=== PATIENT | female | born 1985 | race Caucasian/White ===

== ENCOUNTER 2020-02-04 06:37 | Outpatient (CLI) | payer OTHER, SELFPAY ==
--- NOTE | ~2020-02-04 | XR_ITS ---
XR foot LT min 3V DATE: 02/04/2020 07:29 INDICATION: Left foot pain TECHNIQUE: 4 views COMPARISON: None FINDINGS: Posterior calcaneal enthesopathy. No fracture or dislocation, periosteal reaction or bone destruction. IMPRESSION: Posterior calcaneal enthesopathy Reviewed, dictated and finalized at location A.
--- NOTE | ~2020-02-04 | XR_ITS ---
XR foot RT min 3V DATE: 02/04/2020 07:29 INDICATION: Right foot pain TECHNIQUE: 4 views COMPARISON: None FINDINGS: Mild plantar and more prominent posterior calcaneal enthesopathy. No fracture or dislocation, periosteal reaction or bone destruction. IMPRESSION: Plantar and posterior calcaneal enthesopathy Reviewed, dictated and finalized at location A.
--- NOTE | ~2020-02-04 | XR_ITS ---
EXAMINATION: HAND-MACI ARTHRITIS 3+VIEWS DATE: 02/04/2020 07:29 INDICATION: Joint pain at the bilateral hands. TECHNIQUE: Posteroanterior, lateral, and oblique views of the left and of the right hands as well as a ballcatchers view of both hands were obtained. COMPARISON: None. FINDINGS: Alignment is normal. No fracture. Joint spaces are normal. No erosions or osteophytosis. Soft tissues are unremarkable. IMPRESSION: 1. Normal bilateral hand radiographs. Reviewed, dictated and finalized at location A.
[2020-02-04 07:22] LABS: Basophils Absolute Auto 0.1 K/mm3 (0.0-0.1); Basophils Percent Auto 0.6 % (0.2-1.2); Hematocrit 40.4 % (37.0-47.0); Hemoglobin 13.8 g/dL (12.0-15.0); Immature Granulocyte Absolute 0.01 K/mm3 (0.00-0.031); Immature Granulocyte Percent A 0.1 % (0-0.5); Lymphocytes Absolute Auto 3.86 K/mm3 (0.9-3.2); Lymphocytes Percent Auto 43.8 % (18.3-44.2); Mean Corpuscular HGB Conc 34.2 g/dl (32-36); Mean Corpuscular Hemoglobin 30.7 pg (26-34); Mean Platelet Volume 9.3 fl (7.4-10.4); Monocytes Absolute Auto 0.7 K/mm3 (0.1-0.6); Monocytes Percent Auto 8.4 % (2.6-8.5); Neutrophils Absolute Auto 4.2 K/mm3 (1.3-6.7); Neutrophils Percent Auto 47.1 % (45.5-73.1); Platelet Count Result 292 k/mm3 (150-375); Red Blood Count 4.49 M/mm3 (4.2-5.4); Red Cell Distribution Width 12.8 % (11.5-14.5); White Blood Count 8.8 K/mm3 (4.5-10.0)
[2020-02-04 07:38] LABS: Alanine Aminotransferase 19 U/L (4-35); Albumin Level 4.5 g/dL (3.5-5.1); Alkaline Phosphatase 61 U/L (38-126); Aspartate Amino Transferase 22 U/L (14-36); Bilirubin,Total 0.2 mg/dL (0.2-1.3); Blood Urea Nitrogen 15 mg/dL (7-17); Calcium 9.2 mg/dL (8.4-10.2); Carbon Dioxide 27 mmol/L (22-30); Chloride 105 mmol/L (98-107); Estimated Glomerular Filt Rate > 60; Glucose 91 mg/dL (65-105); Sodium 139 mmol/L (137-145); Uric Acid 4.9 mg/dL (2.5-7.5)
[2020-02-04 07:53] LABS: Erythrocyte Sedimentation Rate 17 mm/hr (0-20)
[2020-02-04 08:06] LABS: Rheumatoid Factor < 8.6 IU/ML (<12)
[2020-02-08 09:44] LABS: ANA Cascade Screen Negative (Negative)
== END 2020-02-04 06:38 | disposition home or self-care (01) ==
PROVIDERS: PCP Family Medicine; Visit Provider Family Medicine
DX: M25.50 Pain in unspecified joint (principal); M77.32 Calcaneal spur, left foot; M77.31 Calcaneal spur, right foot
CPT/HCPCS: 36415; 73130; 73630; 80053; 84443; 84550; 85025; 85652; 86038; 86430

== ENCOUNTER 2020-11-23 16:14 | Emergency (ER) | payer OTHER, SELFPAY ==
[2020-11-23 16:27] VITALS: BP 128/96; PULSE 77; RESP 16; TEMP 36.8; O2SAT 98
[2020-11-23 16:37] VITALS: BP 128/76; PULSE 72; RESP 17; TEMP 36.8; O2SAT 100
--- NOTE | 2020-11-23 16:53 | PC.NURSE ---
LEOBARDO mccracken at bedside.
[2020-11-23] MEDS: DEXAMETHASONE SOD PHOS INJ 4 MG/ML VIAL 10 MG IV PUSH (17:13)
[2020-11-23] MEDS: diphenhydrAMINE HCl INJ 50 MG/ML VIAL 25 MG IV PUSH (17:14)
[2020-11-23] MEDS: SODIUM CHLORIDE 0.9% IV 1,000 ML 999 ML IV CONT (17:14)
[2020-11-23] MEDS: KETOROLAC 15 MG/ML VIAL (*BKC) IV PUSH (17:14)
--- NOTE | 2020-11-23 17:57 | ED.GENADULT ---
HPI - General Adult General Chief complaint: Headache Stated complaint: migrane Time Seen by Provider: 11/23/20 16:31 Source: patient Mode of arrival: ambulatory Limitations: no limitations History of Present Illness HPI narrative: Patient with history of Chiari malformation and migraines presents with chief complaint of a migraine that has been present for 6 days. Patient reports she has had some photophobia and nausea. Patient states she has been taking the Excedrin without resolution of her symptoms. She denies syncope, visual or auditory changes. Patient reports that she had surgery for her Chiari malformation in 2019 however she has been seeing her neurologist recently for additional work-up as some of her symptoms have increased in frequency. She states she called her Neurologist and she was told to present to the ER for migraine aborting medications and to follow up in their office. Related Data Home Medications Medication Instructions Recorded Confirmed alprazolam 0.5 mg tablet 0.5 mg PO DAILY PRN 01/28/20 01/28/20 escitalopram oxalate 20 mg tablet 20 mg PO DAILY 01/28/20 01/28/20 Allergies Allergy/AdvReac Type Severity Reaction Status Date / Time Sulfa (Sulfonamide Allergy Mild HIVES Verified 10/20/16 12:35 Antibiotics) tizanidine Allergy Swelling Verified 11/23/20 17:31 of Lip/Tongue/Throat Wheat Allergy Intermediate Unknown Uncoded 11/23/20 17:31 Review of Systems Review of Systems: Narrative: CONSTITUTIONAL: Denies fever, chills, or sweats. EYES: Denies visual changes, redness, or discharge. ENT: Denies rhinorrhea, congestion, sore throat, or otalgia. CARDIOVASCULAR: Denies chest pain, palpitations, or edema. RESPIRATORY: Denies cough or dyspnea. GASTROINTESTINAL: Reports nausea denies abdominal pain, vomiting, or diarrhea. GENITOURINARY: Denies dysuria or hematuria. SKIN: Denies rash or itching. MUSCULOSKELETAL: Denies back pain, myalgia, or joint pain NEUROLOGIC: Reports headache denies numbness, dizziness, or weakness. PSYCHIATRIC: Denies anxiety or depression. [facility] Family History Family History (Updated 12/24/18 @ 12:05 by DOCTOR UNKNOWN) Grandparent Diabetes mellitus Family history of cardiovascular disease Family history of seizure disorder Father Family history of alcoholism Other Cerebrovascular accident Family history of gallbladder disease Hypertension Social History Social History Smoking status: Never smoker Alcohol intake: never Gender identity (if verbalized by the patient): Female Exam Narrative: Exam Narrative: GENERAL: Well-appearing, well-nourished. HEAD: Normocephalic, atraumatic. EYES: PERRLA and EOMI. ENT: Nares clear, no rhinorrhea or epistaxis. Mucous membranes moist. Oropharynx without tonsillar hypertrophy exudate or other lesions. Bilateral TMs pearly bonilla nonbulging NECK: Supple. No adenopathy or masses. No vertebral tenderness or loss of ROM. CHEST: Clear to auscultation. No respiratory distress. No wheezes rales or rhonchi HEART: Regular rate and rhythm. Normal peripheral pulses. EXTREMITIES: No acute changes in ROM. No edema. SKIN: Warm, dry, no rash. NEURO: No focal deficits. Alert and oriented x3. Speech appropriate. PSYCH: Normal mood and affect. Course Vital Signs Vital signs: Vital Signs Temperature 98.3 F 11/23/20 16:27 Pulse Rate 77 11/23/20 16:27 Respiratory Rate 16 11/23/20 16:27 Blood Pressure 128/96 H 11/23/20 16:27 Pulse Oximetry 98 11/23/20 16:27 Temperature 98.3 F 11/23/20 16:37 Pulse Rate 78 11/23/20 18:23 Respiratory Rate 16 11/23/20 18:23 Blood Pressure 123/75 11/23/20 18:23 Pulse Oximetry 100 11/23/20 18:23 Medical Decision Making MDM Narrative Medical decision making narrative: Patient states that she feels her headache is greatly improved and she feels ready to go home. Patient has been given a note to be off work so that she can follow-up with porter
[2020-11-23 18:23] VITALS: BP 123/75; PULSE 78; RESP 16; O2SAT 100
== END 2020-11-23 18:24 | disposition home or self-care (01) ==
PROVIDERS: Emergency Provider Emergency Medicine; PCP Family Medicine
DX: G43.001 Migraine without aura, not intractable, with status migrainosus (principal)
CPT/HCPCS: 96361; 96374; 96375; 99284; J1100; J1200; J1885; J7030

== ENCOUNTER 2022-01-14 17:04 | Emergency (ER) | payer OTHER, SELFPAY ==
--- NOTE | ~2022-01-14 | XR_ITS ---
EXAM: XR shoulder RT min 2V HISTORY: shoulder injury,TODAY,PAIN WITH MOVEMENT ENTIRE RT SHOULDER COMPARISON: None available FINDINGS: Normal mineralization. No fracture or dislocation. No lytic or blastic lesion. Degenerativ e changes at the AC joint and acromion. No erosion or periosteal change. Soft tissues within normal l imits. IMPRESSION: No acute osseous finding in the right shoulder. Reviewed, dictated and finalized at location K.
[2022-01-14 17:08] VITALS: BP 138/94; PULSE 90; RESP 16; TEMP 36.3; O2SAT 98
--- NOTE | 2022-01-14 18:39 | ED.UPPEXIN ---
HPI - Extremity Injury (Upper) General Chief Complaint: Extremity Injury, Upper Stated Complaint: right shoulder injury Time Seen by Provider: 01/14/22 17:57 Source: patient Mode of arrival: ambulatory Limitations: no limitations History of Present Illness HPI narrative: This is a 36-year-old female that presents to the emergency department for right shoulder pain after an injury today. Reports she was helping to carry a heavy table. She felt a tearing sensation in the right shoulder. Since she has had pain and decreased range of motion. She has not taken anything for pain. Denies numbness. Related Data Home Medications Medication Instructions Recorded Confirmed alprazolam 0.5 mg tablet 0.5 mg PO DAILY PRN 01/28/20 09/15/21 Allergies Allergy/AdvReac Type Severity Reaction Status Date / Time rizatriptan [From Maxalt] Allergy Severe throat Verified 01/14/22 17:55 swelling, tongue swelling Sulfa (Sulfonamide Allergy Mild HIVES Verified 01/14/22 17:55 Antibiotics) tizanidine Allergy Swelling Verified 01/14/22 17:55 of Lip/Tongue/Throat Wheat Allergy Intermediate Unknown Uncoded 09/13/21 08:52 Review of Systems Review of Systems: CONSTITUTIONAL: Denies fever MUSCULOSKELETAL: Reports joint pain, and myalgia. NEUROLOGIC: Denies numbness All systems reviewed & are unremarkable except as noted in HPI and below PMFSH Past Medical History Medical History Allergies Anxiety Gall bladder disease Surgical History Surgical History Chiari I malformation decompression surgery ( laminectomy, decompression) History of carpal tunnel surgery History of cholecystectomy Hx of tonsillectomy Family History Family History Grandparent Diabetes mellitus Family history of cardiovascular disease Family history of seizure disorder Father Family history of alcoholism Other Cerebrovascular accident Family history of gallbladder disease Hypertension Social History Social History Smoking status: Never smoker Alcohol intake: current Substance use: unknown Gender identity (if verbalized by the patient): Female Exam Narrative: GENERAL: Well-appearing, well-nourished, and in no acute distress. HEAD: Normocephalic, atraumatic. EYES: EOMI. EXTREMITIES: No edema or obvious deformity. Decreased active ROM in the right shoulder due to pain. Normal radial pulses. Normal sensation SKIN: Warm, dry, no rash. NEURO: No focal deficits. Alert and oriented x3. PSYCH: Normal mood and affect Course Vital Signs Vital signs: Vital Signs Temperature 97.4 F L 01/14/22 17:08 Pulse Rate 90 01/14/22 17:08 Respiratory Rate 16 01/14/22 17:08 Blood Pressure 138/94 H 01/14/22 17:08 Pulse Oximetry 98 01/14/22 17:08 Temperature 97.4 F L 01/14/22 17:08 Pulse Rate 90 01/14/22 17:08 Respiratory Rate 16 01/14/22 17:08 Blood Pressure 138/94 H 01/14/22 17:08 Pulse Oximetry 98 01/14/22 17:08 MDM - Extremity Injury (Upper) MDM Narrative Medical decision making narrative: Patient presents to the ER for right shoulder pain after an injury today. Right shoulder x-ray without acute osseous abnormalities. Patient is neurovascularly intact. Patient placed in a sling. Instructed to rest, ice and take [id number] pain medication as needed. She is to follow-up with her primary care doctor. She was given warnings to return to the ER Imaging Data Radiologist's impression: ITS Impressions Shoulder X-Ray 01/14/22 17:26 IMPRESSION: No acute osseous finding in the right shoulder. Critical Care Time Critical Care Time Critical Care Time: No Discharge Plan Discharge Clinical Impression: Acute pain of right shoulder Patie
[2022-01-14] MEDS: KETOROLAC (*BKC) 60 MG/2 ML VIAL IM (18:49)
== END 2022-01-14 19:01 | disposition home or self-care (01) ==
PROVIDERS: Emergency Provider Emergency Medicine; PCP Physician Assistant
DX: M25.511 Pain in right shoulder (principal); F41.9 Anxiety disorder, unspecified; Z88.2 Allergy status to sulfonamides; Z91.018 Allergy to other foods; Z88.8 Allergy status to other drugs, medicaments and biological substances
CPT/HCPCS: 73030; 96372; 99283; A4565; J1885

== ENCOUNTER 2022-02-19 10:47 | Outpatient (CLI) | payer OTHER, SELFPAY | END 2022-02-19 10:48 | disposition home or self-care (01) | LOC: ANHLAB 10:51 | PROVIDERS: PCP Physician Assistant | DX: L70.0 Acne vulgaris (principal) | CPT/HCPCS: 36415; 84132 ==

== ENCOUNTER 2022-05-01 11:06 | Outpatient (CLI) | payer OTHER, SELFPAY ==
[2022-05-01 11:41] LABS: Basophils Percent Auto 0.4 % (0.2-1.2); Eosinophils Absolute Auto 0.2 K/mm3 (0-0.3); Hematocrit 40.7 % (37.0-47.0); Hemoglobin 13.7 g/dL (12.0-15.0); Immature Granulocyte Absolute 0.04 K/mm3 (0.00-0.031); Immature Granulocyte Percent A 0.4 % (0-0.5); Lymphocytes Absolute Auto 3.64 K/mm3 (0.9-3.2); Lymphocytes Percent Auto 35.4 % (18.3-44.2); Mean Corpuscular HGB Conc 33.7 g/dl (32-36); Mean Corpuscular Hemoglobin 30.9 pg (26-34); Mean Corpuscular Volume 91.7 fl (80-100); Mean Platelet Volume 9.5 fl (7.4-10.4); Monocytes Absolute Auto 0.7 K/mm3 (0.1-0.6); Monocytes Percent Auto 6.9 % (2.6-8.5); Neutrophils Absolute Auto 5.7 K/mm3 (1.3-6.7); Neutrophils Percent Auto 54.9 % (45.5-73.1); Platelet Count Result 330 k/mm3 (150-375); Red Blood Count 4.44 M/mm3 (4.2-5.4); White Blood Count 10.3 K/mm3 (4.5-10.0)
[2022-05-01 11:53] LABS: Alanine Aminotransferase 21 U/L (6-35); Albumin Level 4.8 g/dL (3.5-5.1); Alkaline Phosphatase 64 U/L (38-126); Anion Gap 10 mmol/L (8-16); Aspartate Amino Transferase 23 U/L (14-36); Bilirubin,Total 0.3 mg/dL (0.2-1.3); Blood Urea Nitrogen 11 mg/dL (7-17); Calcium 9.6 mg/dL (8.4-10.2); Carbon Dioxide 27 mmol/L (22-30); Chloride 99 mmol/L (98-107); Cholesterol 169 mg/dL (0-200); Estimated Glomerular Filt Rate > 60; Glucose 97 mg/dL (65-110); HDL Direct 41 mg/dL; Sodium 136 mmol/L (137-145); Triglycerides 170 mg/dL (<150)
[2022-05-01 12:07] LABS: LDL Cholesterol Direct 87 mg/dL
[2022-05-01 12:23] LABS: Thyroid Stimulating Hormone 0.929 uIU/mL (0.465-4.680)
[2022-05-01 13:08] LABS: Folic Acid 13.4 ng/mL (2.76->20)
== END 2022-05-01 11:07 | disposition home or self-care (01) ==
LOC: ANHLAB 11:07
PROVIDERS: PCP Physician Assistant; Visit Provider Physician Assistant
DX: Z00.00 Encounter for general adult medical examination without abnormal findings (principal)
CPT/HCPCS: 36415; 80053; 80061; 82607; 82746; 84443; 85025

== ENCOUNTER 2022-07-09 09:47 | Outpatient (CLI) | payer OTHER, SELFPAY ==
[2022-07-09 10:41] LABS: Rheumatoid Factor < 8.6 IU/ML (<12)
[2022-07-09 10:45] LABS: Erythrocyte Sedimentation Rate 18 mm/hr (0-20)
== END 2022-07-09 09:48 | disposition home or self-care (01) ==
LOC: ANHLAB 09:49
PROVIDERS: PCP Physician Assistant; Visit Provider Physician Assistant
DX: M25.50 Pain in unspecified joint (principal)
CPT/HCPCS: 36415; 85652; 86038; 86430

== ENCOUNTER 2022-12-06 08:02 | Outpatient (CLI) | payer OTHER, SELFPAY ==
--- NOTE | ~2022-12-06 | US_ITS ---
Thyroid ultrasound. Clinical History: Thyroid nodule Findings: Real-time sonography of the thyroid gland was performed. The right lobe measures 5.7 x 1.3 x 1.6 cm. The left lobe measures 5.3 x 1.5 x 2.0 cm. The isthmus is 3 mm in AP diameter. There is a 1.8 x 0.9 x 1.4 cm hypoechoic solid nodule at the right mid to lower pole extending toward s the isthmus. There is a 2.2 x 1.2 x 1.3 semisolid, mildly lobulated, hypoechoic mass at the left lo wer pole. Impression: 1.8 cm right thyroid nodule, and 2.2 cm left thyroid nodule. These are both TR-4 lesions, and based o n size, FNA of both nodules would be advised to establish a histologic diagnosis. Reviewed, dictated and finalized at [facility]. Impression: 1.8 cm right thyroid nodule, and 2.2 cm left thyroid nodule. These are both TR- 4 lesions, and based on size, FNA of both nodules would be advised to establish a histologic diagnosis.
[2022-12-06 09:04] LABS: Free T4 Free Thyroxine 0.92 ng/mL (0.78-2.19)
[2022-12-06 09:12] LABS: Cortisol Baseline 5.22 ug/dL
[2022-12-06 09:13] LABS: Thyroid Stimulating Hormone 0.652 uIU/mL (0.465-4.680)
[2022-12-10 03:58] LABS: Growth Hormone ICMA <0.1 ng/mL (<=7.1)
[2022-12-10 11:17] LABS: Adrenocorticotropic Hormone 12 pg/mL (6-50)
[2022-12-13 13:57] LABS: Z Score Female 0.3 SD (-2.0 - +2.0)
[2022-12-15 04:06] LABS: FSH 8.6 mIU/mL (***); LH 5.6 mIU/mL (***); Prolactin 9.1 ng/mL (***)
[2022-12-18 09:34] LABS: Reference Lab Test Result 0.3
== END 2022-12-06 08:03 | disposition home or self-care (01) ==
PROVIDERS: PCP Physician Assistant; Visit Provider Internal Medicine
DX: E04.1 Nontoxic single thyroid nodule (principal); E23.6 Other disorders of pituitary gland
CPT/HCPCS: 36415; 76536; 82024; 82533; 83001; 83002; 83003; 84146; 84305; 84439; 84443

== ENCOUNTER 2022-12-19 09:58 | Outpatient (CLI) | payer OTHER, SELFPAY ==
--- NOTE | ~2022-12-19 | US_ITS ---
EXAMINATION: 1. US FNA additional 2. US FNA w image guidance DATE: 12/19/2022 11:57 INDICATION: Bilateral thyroid nodules. TECHNIQUE: The procedure and its benefits and risks were discussed with the patient. Risks specifically discusse d included bleeding. The patient verbalized understanding of the risks and agreed to proceed. The nec k was prepped and draped in the usual sterile manner. 1% lidocaine was used for local anesthesia. 6 passes were made with a 25G needle into the lesion in right thyroid lobe under ultrasound guidance. 6 passes were made with a 25-gauge needle into the lesion in left thyroid lobe under ultrasound brennan nce. There were no immediate complications. FINDINGS: Grayscale ultrasound images demonstrate needles advanced into a 1.8 cm nodule in right thyroid lobe f or biopsy. Grayscale images demonstrate needles advanced into a 2.2 cm left thyroid nodule for biopsy . IMPRESSION: 1. Ultrasound-guided fine needle aspiration of a 1.8 cm right thyroid nodule. 2. Ultrasound-guided fine-needle aspiration of a 2.2 cm left thyroid nodule. Reviewed, dictated and finalized at location A. IMPRESSION: 1. Ultrasound-guided fine needle aspiration of a 1.8 cm right thyroid nodule. 2. Ultrasound-guided fine-needle aspiration of a 2.2 cm left thyroid nodule.
== END 2022-12-19 09:59 | disposition home or self-care (01) ==
PROVIDERS: PCP Physician Assistant; Visit Provider Internal Medicine
DX: R91.8 Other nonspecific abnormal finding of lung field (principal)
CPT/HCPCS: 10005; 10006; 88173; 88305

== ENCOUNTER 2023-02-13 09:55 | Outpatient (CLI) | payer OTHER, SELFPAY ==
--- NOTE | ~2023-02-13 | US_ITS ---
EXAMINATION: US FNA w image guidance DATE: 02/13/2023 10:49 INDICATION: Right thyroid nodule. TECHNIQUE: The procedure and its benefits and risks were discussed with the patient. Risks specifically discusse d included bleeding. The patient verbalized understanding of the risks and agreed to proceed. The nec k was prepped and draped in the usual sterile manner. 1% lidocaine was used for local anesthesia. S ix passes were made with a 25G needle into the lesion under ultrasound guidance. There were no immed iate complications. FINDINGS: Grayscale ultrasound images demonstrate needles advanced into a 1.7 cm nodules in right thyroid lobe for biopsy. IMPRESSION: 1. Ultrasound-guided fine needle aspiration of a right thyroid nodule. Reviewed, dictated and finalized at location A.
== END 2023-02-13 09:56 | disposition home or self-care (01) ==
LOC: ANHIMG 09:59
PROVIDERS: PCP Physician Assistant; Visit Provider Internal Medicine
DX: E04.1 Nontoxic single thyroid nodule (principal)
CPT/HCPCS: 10005; 88173; 88305

== ENCOUNTER 2023-04-04 07:34 | Outpatient (CLI) | payer OTHER, SELFPAY ==
[2023-04-04 09:08] LABS: Cortisol Baseline 2.01 ug/dL
== END 2023-04-04 07:35 | disposition home or self-care (01) ==
LOC: ANHOUTPT 07:36
PROVIDERS: PCP Physician Assistant; Visit Provider Internal Medicine
DX: E27.40 Unspecified adrenocortical insufficiency (principal)
CPT/HCPCS: 36415; 82533; 96372; J0834

== ENCOUNTER 2023-05-12 07:36 | Outpatient (CLI) | payer OTHER, SELFPAY ==
--- NOTE | ~2023-05-12 | MR_ITS ---
EXAMINATION: MR pituitary wo/w con DATE: 05/12/2023 08:34 INDICATION: Other disorders of the pituitary gland. TECHNIQUE: Magnetic resonance imaging (MRI) of the brain and brainstem was performed without and with 18 mL MultiHance intravenous contrast. COMPARISON: Brain MRI 09/17/2018 FINDINGS: The pituitary is normal size with height of 9 mm. There are changes of suboccipital craniec arben. There is no intracranial hemorrhage, acute infarction, or abnormal intracranial mass lesion. Th e ventricles are normal in size. The orbits are normal. The paranasal sinuses are clear. The mastoid air cells are normal. IMPRESSION: 1. Normal brain. Reviewed, dictated and finalized at location E. IMPRESSION: 1. Normal brain.
== END 2023-05-12 07:37 | disposition home or self-care (01) ==
PROVIDERS: PCP Physician Assistant; Visit Provider Internal Medicine
DX: E23.6 Other disorders of pituitary gland (principal)
CPT/HCPCS: 70553; A9577

== ENCOUNTER 2023-06-11 08:00 | Outpatient (CLI) | payer OTHER, SELFPAY ==
[2023-06-11 08:56] LABS: Alanine Aminotransferase 22 U/L (6-35); Aspartate Amino Transferase 34 U/L (14-36); Triglycerides 118 mg/dL (<150)
[2023-06-11 09:29] LABS: Free T4 Free Thyroxine 0.86 ng/mL (0.78-2.19)
== END 2023-06-11 08:01 | disposition home or self-care (01) ==
PROVIDERS: PCP Physician Assistant; Visit Provider Internal Medicine
DX: E23.6 Other disorders of pituitary gland (principal); L70.0 Acne vulgaris
CPT/HCPCS: 36415; 84439; 84450; 84460; 84478

== ENCOUNTER 2023-06-17 09:30 | Outpatient (CLI) | payer OTHER, SELFPAY ==
[2023-06-20 03:52] LABS: Thyroid Peroxidase Antibodies <1 IU/mL (<9)
== END 2023-06-17 09:31 | disposition home or self-care (01) ==
PROVIDERS: PCP Physician Assistant; Visit Provider Internal Medicine
DX: E04.1 Nontoxic single thyroid nodule (principal)
CPT/HCPCS: 36415; 84443; 86376

== ENCOUNTER 2023-07-10 04:08 | Emergency (ER) | payer OTHER, SELFPAY ==
--- NOTE | ~2023-07-10 | XR_ITS ---
Clinical Indication: Cough PA and lateral views of the chest: Comparison: 09/28/2020 Findings: There is left perihilar consolidation, consistent with pneumonia. Right lung clear. Cardio mediastinal silhouette is within normal limits. Bones and soft tissues are unremarkable. Impression: Left upper lobe pneumonia in the perihilar region. Reviewed, dictated and finalized at location . Impression: Left upper lobe pneumonia in the perihilar region.
[2023-07-10 04:11] VITALS: BP 128/86; PULSE 110; RESP 20; TEMP 37.1; O2SAT 95
[2023-07-10 04:49] VITALS: O2SAT 96
[2023-07-10] MEDS: ACETAMINOPHEN 500 MG TABLET 1000 MG PO (04:54)
[2023-07-10 04:59] LABS: Influenza A QL RT-PCR Negative (Negative); Influenza B QL RT-PCR Negative (Negative); SARS-CoV-2 RNA PCR Negative (Negative)
--- NOTE | 2023-07-10 05:06 | ED.GENADULT ---
HPI - General Adult General Chief complaint: Upper Respiratory Infection Stated complaint: fever, cough Time Seen by Provider: 07/10/23 04:54 History of Present Illness HPI narrative: Patient 38-year-old female who presents emergency department with chief complaint of body aches fevers and cough. Patient reports for several days reports that she is able to start fever control with Tylenol and ibuprofen. Patient states she is concerned she may have COVID-19 test today fell asleep before the 15 minutes were up and then woke up later on and so explained second. Patient states that she does have a child that has cancer at home and she is concerned that she may be infectious. Related Data Home Medications Medication Instructions Recorded Confirmed alprazolam 0.5 mg tablet (Xanax) 0.5 mg PO DAILY PRN 01/28/20 03/29/23 onabotulinumtoxinA 200 unit 200 unit IM ONCE 11/22/22 03/29/23 solution for injection (Botox) Allergies Allergy/AdvReac Type Severity Reaction Status Date / Time rizatriptan [From Maxalt] Allergy Severe throat Verified 07/10/23 04:35 swelling, tongue swelling Sulfa (Sulfonamide Allergy Mild HIVES Verified 07/10/23 04:35 Antibiotics) tizanidine Allergy Swelling Verified 07/10/23 04:35 of Lip/Tongue/Throat Wheat Allergy Intermediate Unknown Uncoded 06/18/23 10:16 Review of Systems Review of Systems: A 10 system review of systems was completed on the patient and is negative except for what is stated in the HPI. Nursing and ancillary documentation was reviewed. [facility] Past Medical History Medical History Allergies Anxiety Gall bladder disease Thyroid nodule Surgical History Surgical History Chiari I malformation decompression surgery ( laminectomy, decompression) History of carpal tunnel surgery History of cholecystectomy Hx of tonsillectomy Family History Family History Grandparent Diabetes mellitus Family history of cardiovascular disease Family history of seizure disorder Father Family history of alcoholism Other Cerebrovascular accident Family history of gallbladder disease Hypertension Social History Social History Smoking status: Never smoker Alcohol intake: current Alcohol use details: Rarely Substance use: never Substance use type: does not use Lack of Transportation: No Lack of Food: Never True Current Housing: I Have Housing Concerned About Future Housing: No Difficulty Paying Gas/Electric Bills: No Difficulty Paying for Meds: No Currently Unemployed: No Education: Associate Degree Difficulty w/ Childcare or Family Care: No Living arrangements: with family Gender identity (if verbalized by the patient): Female Exam Narrative: GENERAL: Well-appearing, well-nourished, and in no acute distress. HEAD: Normocephalic, atraumatic. EYES: PERRLA and EOMI. ENT: Nares clear, no rhinorrhea or epistaxis. Mucous membranes moist. NECK: Supple. CHEST: Clear to auscultation. No respiratory distress. HEART: Regular rate and rhythm. No murmur heard. Normal peripheral pulses. ABDOMEN: Soft, nontender, nondistended, normal active bowel sounds. EXTREMITIES: Normal range of motion. No edema. SKIN: Warm, dry, no rash. NEURO: No focal deficits. Alert and oriented x3. PSYCH: Normal mood and affect. Course Vital Signs Vital signs: Vital Signs Temperature 37.1 C 07/10/23 04:11 Pulse Rate 110 H 07/10/23 04:11 Respiratory Rate 20 07/10/23 04:11 Blood Pressure 128/86 07/10/23 04:11 Pulse Oximetry 95 07/10/23 04:11 Oxygen Delivery Room Air 07/10/23 04:11 Temperature 37.1 C 07/10/23 04:11 Pulse Rate 110 H 07/10/23 04:11 Respiratory Ra
[2023-07-10 06:16] VITALS: BP 122/83; PULSE 102; RESP 16; TEMP 37.3; O2SAT 97
== END 2023-07-10 06:18 | disposition home or self-care (01) ==
PROVIDERS: Emergency Provider Emergency Medicine; PCP Physician Assistant
DX: J18.9 Pneumonia, unspecified organism (principal); F41.9 Anxiety disorder, unspecified; Z90.49 Acquired absence of other specified parts of digestive tract; Z20.822 Contact with and (suspected) exposure to COVID-19
CPT/HCPCS: 71046; 87636; 99283; A9270

== ENCOUNTER 2023-09-03 21:26 | Emergency (ER) | payer OTHER, SELFPAY ==
[2023-09-03 21:37] VITALS: BP 124/83; PULSE 79; RESP 15; TEMP 36.2; O2SAT 99
[2023-09-03 22:25] LABS: Strep Group A RT-PCR NOT DETECTED (Negative)
[2023-09-03 22:36] LABS: Influenza A QL RT-PCR Negative (Negative); Influenza B QL RT-PCR Negative (Negative); RSV RNA, RT-PCR Negative (Negative); SARS-CoV-2 RNA PCR Negative (Negative)
--- NOTE | 2023-09-03 22:54 | ED.GENADULT ---
HPI - General Adult General Chief complaint: Upper Respiratory Infection Stated complaint: URI Time Seen by Provider: 09/03/23 22:38 Source: patient Mode of arrival: ambulatory Limitations: no limitations History of Present Illness HPI narrative: This is a 38-year-old female who presents to the ED with chief complaint of URI symptoms for the past 2 days. Reports headaches, body aches, fevers, chills, cough and sore throat. Reports she had COVID and pneumonia few months ago but has been fine since then. Denies abdominal pain, chest pain, shortness of breath. Related Data Home Medications Medication Instructions Recorded Confirmed alprazolam 0.5 mg tablet (Xanax) 0.5 mg PO DAILY PRN 01/28/20 03/29/23 onabotulinumtoxinA 200 unit 200 unit IM ONCE 11/22/22 03/29/23 solution for injection (Botox) Allergies Allergy/AdvReac Type Severity Reaction Status Date / Time rizatriptan [From Maxalt] Allergy Severe throat Verified 07/10/23 04:35 swelling, tongue swelling Sulfa (Sulfonamide Allergy Mild HIVES Verified 07/10/23 04:35 Antibiotics) tizanidine Allergy Swelling Verified 07/10/23 04:35 of Lip/Tongue/Throat Wheat Allergy Intermediate Unknown Uncoded 06/18/23 10:16 Review of Systems Review of Systems: All systems as dictated in [facility] Past Medical History Medical History Allergies Anxiety Gall bladder disease Thyroid nodule Surgical History Surgical History Chiari I malformation decompression surgery ( laminectomy, decompression) History of carpal tunnel surgery History of cholecystectomy Hx of tonsillectomy Family History Family History Grandparent Diabetes mellitus Family history of cardiovascular disease Family history of seizure disorder Father Family history of alcoholism Other Cerebrovascular accident Family history of gallbladder disease Hypertension Social History Social History Smoking status: Never smoker Alcohol intake: current Alcohol use details: Rarely Substance use: never Substance use type: does not use Lack of Transportation: No Lack of Food: Never True Current Housing: I Have Housing Concerned About Future Housing: No Difficulty Paying Gas/Electric Bills: No Difficulty Paying for Meds: No Currently Unemployed: No Education: Associate Degree Difficulty w/ Childcare or Family Care: No Living arrangements: with family Gender identity (if verbalized by the patient): Female Exam Narrative: GENERAL: Well-appearing, well-nourished, and in no acute distress. HEAD: Normocephalic, atraumatic. EYES: PERRLA and EOMI. ENT: Nares clear, no rhinorrhea or epistaxis. Mucous membranes moist. Oropharynx without tonsillar hypertrophy exudate or other lesions. NECK: Supple. No adenopathy or masses. CHEST: No respiratory distress. Slight wheezes heard bilaterally throughout. 99% on room air. Coughing on exam HEART: Regular rate and rhythm. No murmur heard. Normal peripheral pulses. ABDOMEN: Soft, nontender, nondistended, normal active bowel sounds. MSK: Normal range of motion. No edema. SKIN: Warm, dry, no rash. NEURO: Alert and oriented x3. No focal deficits. PSYCH: Normal mood and affect. Course Vital Signs Vital signs: Vital Signs Temperature 97.1 F L 09/03/23 21:37 Pulse Rate 79 09/03/23 21:37 Respiratory Rate 15 09/03/23 21:37 Blood Pressure 124/83 09/03/23 21:37 Pulse Oximetry 99 09/03/23 21:37 Oxygen Delivery Room Air 09/03/23 21:37 Temperature 97.5 F L 09/03/23 23:44 Pulse Rate 72 09/03/23 23:44 Respiratory Rate 16 09/03/23 23:44 Blood Pressure 129/78 09/03/23 23:44 Pulse Oximetry 99 09/03/23 23:44 Oxygen
[2023-09-03 23:44] VITALS: BP 129/78; PULSE 72; RESP 16; TEMP 36.4; O2SAT 99
== END 2023-09-03 23:45 | disposition home or self-care (01) ==
LOC: ANHED 23:02
PROVIDERS: Emergency Medicine; Emergency Provider Physician Assistant; PCP Physician Assistant
DX: J40 Bronchitis, not specified as acute or chronic (principal); Z20.822 Contact with and (suspected) exposure to COVID-19; F41.9 Anxiety disorder, unspecified
CPT/HCPCS: 87637; 87651; 99283

== ENCOUNTER 2023-10-17 09:20 | Outpatient (CLI) | payer OTHER, SELFPAY ==
[2023-10-17 10:46] LABS: Alanine Aminotransferase 21 U/L (6-35); Aspartate Amino Transferase 48 U/L (14-36); Triglycerides 139 mg/dL (<150)
== END 2023-10-17 09:21 | disposition home or self-care (01) ==
PROVIDERS: PCP Physician Assistant
DX: L70.0 Acne vulgaris (principal)
CPT/HCPCS: 36415; 84450; 84460; 84478

== ENCOUNTER 2023-10-17 09:21 | Outpatient (CLI) | payer OTHER, SELFPAY ==
[2023-10-17 10:59] LABS: Glucose 101 mg/dL (65-110)
[2023-10-17 11:18] LABS: Thyroid Stimulating Hormone 0.519 uIU/mL (0.465-4.680)
[2023-10-17 11:21] LABS: Vitamin D 25 Hydroxy 25.4 ng/mL
[2023-10-17 11:22] LABS: Free T4 Free Thyroxine 0.83 ng/mL (0.78-2.19)
[2023-10-17 11:53] LABS: Hemoglobin A1C 5.5 % (<5.7)
[2023-10-20 11:03] LABS: Insulin Level Total 30.9 uIU/mL (<=18.4)
== END 2023-10-17 09:22 | disposition home or self-care (01) ==
LOC: ANHLAB 09:21
PROVIDERS: PCP Physician Assistant; Visit Provider Internal Medicine
DX: E04.1 Nontoxic single thyroid nodule (principal); E23.6 Other disorders of pituitary gland
CPT/HCPCS: 36415; 82306; 82607; 82947; 83036; 83525; 84439; 84443; 84450; 84460; 84478

== ENCOUNTER 2024-04-08 08:55 | Outpatient (CLI) | payer OTHER, SELFPAY ==
[2024-04-08 10:23] LABS: Cholesterol 154 mg/dL (0-200); HDL Direct 37 mg/dL; Triglycerides 188 mg/dL (<150)
[2024-04-08 10:35] LABS: LDL Cholesterol Direct 82 mg/dL
[2024-04-08 10:55] LABS: Free T4 Free Thyroxine 0.78 ng/mL (0.78-2.19); Vitamin D 25 Hydroxy 40.7 ng/mL
== END 2024-04-08 08:56 | disposition home or self-care (01) ==
LOC: ANHLAB 08:55
PROVIDERS: PCP Physician Assistant; Visit Provider Internal Medicine
DX: E04.2 Nontoxic multinodular goiter (principal); E55.9 Vitamin D deficiency, unspecified; E53.8 Deficiency of other specified B group vitamins; Z13.220 Encounter for screening for lipoid disorders
CPT/HCPCS: 36415; 80061; 82306; 82607; 84439; 84443

== ENCOUNTER 2025-08-19 08:39 | Outpatient (CLI) | payer OTHER, SELFPAY ==
--- NOTE | ~2025-08-19 | US_ITS ---
US thyroid INDICATION: Thyroid nodules. Previous benign biopsies TECHNIQUE: Real-time sonographic images of the thyroid gland were obtained. COMPARISON: Ultrasound dated 12/06/2022 FINDINGS: The right thyroid lobe measures 5.7 x 1.3 x 1.6 cm. The left thyroid lobe measures 5.3 x 1.5 x 2 cm. There is normal echotexture and echogenicity throughout the thyroid gland. In the right lobe there is a solid hypoechoic wider than tall smoothly marginated mass with echogenic foci measuring 1.9 x 1.3 x 0.8 cm, TR 5. This mass measured 1.8 x 1.4 x 1.9 cm on prior examination. There are smaller nodules in the right lobe which are not significantly changed. In the left lobe there is a solid hypoechoic wider than tall mass with smooth margins and no echogenic foci measuring 1.5 cm compared with 2.2 cm on prior examination, TR 4. Normal vascular flow is present. IMPRESSION: 1. Stable bilateral thyroid masses which were previously documented benign by biopsy per clinical history. Findings compatible with multinodular goiter. Consider follow-up ultrasound in 12 months. Reviewed, dictated and finalized at location I. [facility] IMPRESSION: 1. Stable bilateral thyroid masses which were previously documented benign by biopsy per clinical history. Findings compatible with multinodular goiter. Cons ider follow-up ultrasound in 12 months.
--- OUTSIDE RECORDS SUMMARY | 2025-08-19 09:00 | XMS_ITS | Clinical Summary ---
Author Organization [facility] Address [address] [place] [address] Care Team Providers Care Alternative Financing Specialist Name Role Phone Manjinder Kearns PA-C Primary Care Provider [phone] Allergies Active Allergy Reactions Criticality Noted Date Comments Rizatriptan Throat swelling,Chest pressure Medium 06/17 Sulfa Antibiotics Hives,Palpitations Low 04/18/2022 Tizanidine Anaphylaxis High 04/18/2022 Zolmitriptan Throat swelling,Chest pressure Medications ALPRAZolam (XANAX) 0.5 MG tablet Take 0.5 mg by mouth daily as needed. FOR ANXIETY 05/29/2021 Active spironolactone (ALDACTONE) 100 MG tablet Take 100 mg by mouth daily. 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 a, intractable, with status migrainosus 01/10/2023 Social History Tobacco Use Types Packs/Day Years Used Date Smoking Tobacco: Never Passive Smoke Exposure: Never Smokeless Tobacco: Never Tobacco Cessation:Counseling Given: Not Answered Alcohol Use Standard Drinks/Week Comments Yes 0 (1 standard drink = 0.6 oz pur e alcohol) maybe once monthly Comments No Sex and Gender Information Value Date Recorded Sex Assigned at Not on file Legal Sex Female 7:45 PM CDT Gender Identity Not on file Sexual Orientation Not on file Last Filed Vital Signs Vital Sign Reading Time Taken Comments Blood Pressure 137/83 09/12/2023 4:17 PM WIRE SPOOLER Pulse 98 09/12/2023 4:17 PM WIRE SPOOLER Temperature 36.9 C (98.5 F) 09/12/2023 4:17 PM WIRE SPOOLER Respiratory Rate 20 09/12/2023 4:17 PM WIRE SPOOLER Oxygen Saturation 98% 09/12/2023 4:19 PM WIRE SPOOLER Inhaled Oxygen Concentration - - Weight 90.7 kg (200 lb) 09/12/2023 4:17 PM WIRE SPOOLER Height 157.5 cm (5' 2) 09/12/2023 4:17 PM WIRE SPOOLER Body Mass Index 36.58 09/12/2023 4:17 PM WIRE SPOOLER Plan of Treatment Health Maintenance Due Date Last Done Comments Cervical Cancer Screening Pa p Smear (Age 30 to 64) Every 3 Years 1987 Annual Physical 1990 Hepatitis C 2005 DTaP, Tdap and Td Vaccines ( 1 - Tdap) 2006 Hepatitis B Vaccines (1 of 3 - 19+ 3-dose series) 2006 HPV Vaccines (1 - 3-dose SCD M series) 2014 Cervical Cancer Screening Pa p with HPV Testing (Age 30 to 64) Every 5 Years 2017 Cervical Cancer Screening wi HPV 2017 COVID-19 Vaccine (3 - 2024-2 6 season) 2025 02/14/2021, 01/18/2021 Influenza Adult (#1) 2025 06/01/2021, 07/03/2019 Hepatitis A Vaccines Aged Out No long er eligible based on patient's age to complete this topic Meningococcal B Vaccine Aged Out No l onger eligible based on patient's age to complete this topic Meningococcal Vaccine Aged Out No renato josie eligible based on patient's age to complete this topic Pneumococcal Vaccine: Pediatrics (0 to 5 Years) and At-Risk Patients (6 to 49 Years) Aged Out No longer eligible b ased on patient's age to complete this topic RSV Immunizations Under 20 Months Aged Out No longer eligible b ased on patient's age to complete this topic Insurance [employer] Care Teams Alternative Financing Specialist Relationship Specialty Start Date End Date Manjinder Kearns PA-C [address] [place] [address] PCP - General PHYSICIAN BEAD CUTTER 10/06/21
--- OUTSIDE RECORDS SUMMARY | 2025-08-19 09:00 | XMS_ITS | Clinical Summary ---
Author Organization [facility] Address [address] [place] [address] Phone Care Team Providers Care Meter Calibrator Name Role Phone Ramy Graff DO Primary Care Provider [phone] Allergies Active Allergy Reactions Criticality Noted Date Comments Rizatriptan Chest tightness,Swelling Medium 07/10/2022 Sulfa Hives Medium 06/12/2023 Tizanidine Anaphylaxis High 04/18/2022 Zolmitriptan Chest tightness,Swelling Medium 2 Medications oxymetazoline 0.05 % nasal spray Administer 2 sprays into each nostril 2 (two) times a day 30 mL 4 Active cetirizine (ZyrTEC) 10 mg tablet Take 1 tablet (10 mg total) by mouth daily 30 tablet 4 Active Active Problems Problem Noted Date Diagnosed Date Multiple thyroid nodules 12/06/2023 Family history of cancer 12/06/2023 Family history of thyroid cancer 12/06/2023 Family history of breast cancer 12/06/2023 Medical History Medical History Date Comments Family history of melanoma 12/06/2023 Social History Tobacco Use Types Packs/Day Years Used Date Smoking Tobacco: Never Assessed Personal Safety Answer Date Recorded Have you ever been in or are you currently in a harmful physical or emotional relationship or is someone making you feel afraid or unsafe? 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 Gender Identity Female 01/25/2022 4:57 AM CDT Sexual Orientation Straight 01/25/2022 4: 57 AM CDT Last Filed Vital Signs Vital Sign Reading Time Taken Comments Blood Pressure 128/90 12/20/2023 12:51 AM CDT Pulse 82 12/20/2023 12:51 AM CDT Temperature 36.6 C (97.9 F) 12/19/2023 9:16 PM CDT Respiratory Rate 15 12/20/2023 12:51 AM CDT Oxygen Saturation 95% 12/20/2023 12:51 AM CDT Inhaled Oxygen Concentration - - Weight 97.8 kg (215 lb 9.8 oz) 12/19/2023 9:16 P M CDT Height - - Body Mass Index - - Plan of Treatment Health Maintenance Due Date Last Done Comments Cervical Cancer Screening 1987 Depression Screening 1987 Hepatitis C Screening 1987 DTaP/Tdap/Td Vaccine (1 - Tdap) 1998 Varicella Vaccines (1 of 2 - 13+ 2-dose series) 2000 Hepatitis B Screening 2005 Regular Well Visit/Exam 18-64 2005 HPV Vaccines (1 - 3-dose SCD M series) 2014 Covid-19 Vaccine (3 - 2024-2 6 season) 2025 02/14/2021, 01/18/2021 Influenza Vaccine (#1) 2025 3, 06/01/2021, 07/03/2019 Pneumococcal vaccine <65 Aged Out No longer eligible based on patient's age to complete this topic Insurance [place] [address] [place] [address] [employer] Address: [address] [place] [id number] Care Teams Meter Calibrator Relationship Specialty Start Date End Date Ramy Graff DO PCP - General Internal Medicine 04/08/24
== END 2025-08-19 08:40 | disposition home or self-care (01) ==
PROVIDERS: PCP Internal Medicine; Visit Provider Internal Medicine
DX: E04.2 Nontoxic multinodular goiter (principal)
CPT/HCPCS: 76536